=== PATIENT | male | born 1970 | race African-American/Black ===

== ENCOUNTER 2023-12-11 19:20 | Emergency (ER) | payer OTHER ==
[2023-12-11 19:52] VITALS: BP 147/90; PULSE 80; RESP 16; TEMP 98.7; BMI 27.1
[2023-12-11] MEDS ORDERED: DIPHTH,PERTUSS(ACELL),TET 0.5 ML DISP.SYRIN IM ONE (20:24)
[2023-12-11] MEDS: DIPHTH,PERTUSS(ACELL),TET 0.5 ML DISP.SYRIN IM ONE (20:30)
== END 2023-12-11 20:44 | disposition home or self-care (01) ==
LOC: FER 19:20
PROC: 3E0234Z Introduction of Serum, Toxoid and Vaccine into Muscle, Percutaneous Approach (ICD-10-PCS; principal; 2023-12-11)
DX: S91.331A Puncture wound without foreign body, right foot, initial encounter (principal); W26.8XXA Contact with other sharp object(s), not elsewhere classified, initial encounter; Z23 Encounter for immunization
CPT/HCPCS: 73630-TC-RT-FY; 90471; 90715; 99283-25